=== PATIENT | female | born 1970 ===

== ENCOUNTER 2018-06-14 17:17 | Emergency (ER) | payer BC ==
[2018-06-14 17:32] VITALS: BMI 29.2
[2018-06-14 17:33] VITALS: RESP 18; TEMP 98.5
[2018-06-14] MEDS ORDERED: Sodium Chloride 0.9% 500 ML IV STA (17:57)
--- NOTE | 2018-06-14 18:35 | ED PDOC ---
Arrival/HPI - General Chief Complaint: Headache Time Seen by Provider: 06/14/18 17:18 Historian: Patient - History of Present Illness Narrative History of Present Illness (Text): 06/14/18 18:32 47-year-old female with no significant past medical history complaining of 4-day history of left flank pain that radiates to the left upper quadrant, patient states that the pain started 4 days ago, was intermittent but since last night has been constant pain associated with nausea. Patient also reports of a mild throbbing headache to the forehead which radiates to the back of her neck for the past 3 days. Otherwise the patient reports no fever, vomiting, diarrhea, urinary symptoms, having similar symptoms in the past, history of gastritis or peptic ulcer disease, history of kidney stones or history of kidney infection, head trauma, head injury, recent travel, recent illness. Of note, patient's only abdominal surgical history is a hysterectomy. PMD none Past Medical History - Infectious Disease Hx of Infectious Diseases: None - Psychiatric Hx Substance Use: No - Surgical History Hx Hysterectomy: Yes - Anesthesia Hx Anesthesia: Yes Hx Anesthesia Reactions: No Hx Malignant Hyperthermia: No Family/Social History Family/Social History: No Known Family HX Smoking Status: Never Smoked Hx Alcohol Use: No Hx Substance Use: No Allergies/Home Meds Allergies/Adverse Reactions: Allergies No Known Allergies Allergy (Verified 06/14/18 17:32) Review of Systems - Review of Systems Constitutional: absent: Fatigue, Fevers ENT: absent: Sore Throat, Rhinorrhea, Sinus Congestion Respiratory: absent: SOB, Cough Cardiovascular: absent: Chest Pain, Palpitations Gastrointestinal: Abdominal Pain, Nausea, Other (+ Left flank pain). absent: Diarrhea, Vomiting Genitourinary Female: absent: Dysuria, Frequency, Hematuria, Vaginal Bleeding, Vaginal Discharge Musculoskeletal: absent: Arthralgias, Back Pain, Neck Pain Skin: absent: Rash, Pruritis, Skin Lesions Neurological: Headache. absent: Dizziness Physical Exam Vital Signs Temp Pulse Resp BP Pulse Ox 06/14/18 18:30 59 L 18 114/69 98 06/14/18 17:32 98.5 F 60 18 116/75 99 Temperature: Afebrile Blood Pressure: Normal Pulse: Regular Respiratory Rate: Normal Appearance: Positive for: Well-Appearing, Non-Toxic, Comfortable Pain Distress: Mild Mental Status: Positive for: Alert and Oriented X 3 - Systems Exam Head: Present: Atraumatic, Normocephalic Pupils: Present: PERRL Extroacular Muscles: Present: EOMI Conjunctiva: Present: Normal Mouth: Present: Moist Mucous Membranes Pharnyx: Present: Normal. No: ERYTHEMA, EXUDATE Neck: Present: Normal Range of Motion. No: Meningeal Signs, Lymphadenopathy Respiratory/Chest: Present: Clear to Auscultation, Good Air Exchange. No: Respiratory Distress, Accessory Muscle Use Cardiovascular: Present: Regular Rate and Rhythm, Normal S1, S2. No: Murmurs Abdomen: No: Tenderness, Distention, Peritoneal Signs, Rebound, Guarding Back: Present: Normal Inspection, CVA Tenderness (+mild L CVA tenderness). No: Midline Tenderness, Paraspinal Tenderness Upper Extremity: Present: Normal Inspection. No: Cyanosis, Edema Lower Extremity: Present: Normal Inspection. No: Edema Neurological: Present: GCS=15, CN II-XII Intact, Speech Normal, Motor Func Grossly Intact, Normal Sensory Function Skin: Present: Warm, Dry, Normal Color. No: Rashes Psychiatric: Present: Alert, Oriented x 3, Normal Insight, Normal Concentration Medical Decision Making ED Course and Treatment: 06/14/18 18:35 Plan : - IV - Labs - UA, urine cx - Zofran / Toradol - Reassess / disposition - CT A/P without p.o. or IV contrast 06/14/18 20:09 Labs reviewed and wnl. CT abdomen and pelvis : No acute intra-abdominal or pelvic abnormality. Degenerative changes with degenerative disc disease at the L5-S1 level. On reevaluation, patient reports improvement of symptoms, denies any abdominal pain, N/V, CP or back pain. On exam, patient remains awake alert and oriented 3 in no acute distress. Abdomen soft and nontender, repeat neuro exam shows no focal findings. Results d/w the patient, diagnosis of possible dyspepsia d/w the patient. IV pepcid given. Advised to follow up with primary care physician or referral provided in 1-2 days without fail. Advised to take medication as prescribed. Return to the emergency room at any time for any new or worsening symptoms. Patient states she fully agrees with and understands discharge instructions. States that she agrees with the plan and disposition. Verbalized and repeated discharge instructions and plan. I have given the patient opportunity to ask any additional questions. - RAD Interpretation Radiology Orders: 06/14/18 17:57 ABD & PELVIS W/O PO OR IV CONT [CT] Stat - Medication Orders Current Medication Orders: Sodium Chloride (Sodium Chloride 0.9%) 500 mls @ 500 mls/hr IV .Q1H STA Stop: 06/14/18 18:56 Last Admin: 06/14/18 18:26 Dose: 500 mls/hr eMAR Start Stop Document 06/14/18 18:26 BB (Rec: 06/14/18 18:29 BB [facility] [id number]) Intravenous Solution Start Date 06/14/18 Start Time 18:29 Discontinued Medications Ketorolac Tromethamine (Toradol) 30 mg IVP STAT STA Stop: 06/14/18 17:58 Last Admin: 06/14/18 18:29 Dose: 30 mg MAR Pain Assessment Document 06/14/18 18:29 BB (Rec: 06/14/18 18:30 BB [facility] [place] [id number]) Pain Reassessment Is this a pain reassessment? No Sleep Is patient sleeping during reassessment? No Presence of Pain Presence of Pain Yes Pain Scale Used Protocol: PSCALES Pain Scale Used Numeric Location Pain Location Body Sales Support Technician Abdomen Description Intensity of Pain at present 8 Pain Behavior Moaning Grasping Site Rubbing Site Restlessness IVP Administration Document 06/14/18 18:29 BB (Rec: 06/14/18 18:30 BB [facility] [place] [id number]) Charges for Administration # of IVP Administrations 1 Ondansetron HCl (Zofran Inj) 4 mg IVP STAT STA Stop: 06/14/18 17:58 Last Admin: 06/14/18 18:29 Dose: 4 mg IVP Administration Document 06/14/18 18:29 BB (Rec: 06/14/18 18:29 BB [facility] [id number]) Charges for Administration # of IVP Administrations 1 - PA / [employer]IE[employer]ENANT / Resident Statement / has reviewed & agrees with the documentation as recorded. / has examined the patient and agrees with the treatment plan. - Scribe Statement The provider has reviewed the documentation as recorded by the Ju Rothman Provider Scribe Attestation: All medical record entries made by the Scribe were at my direction and personally dictated by me. I have reviewed the chart and agree that the record accurately reflects my personal performance of the history, physical exam, medical decision making, and the department course for this patient. I have also personally directed, reviewed, and agree with the discharge instructions and disposition. Disposition/Present on Arrival - Present on Arrival Any Indicators Present on Arrival: No History of DVT/PE: No History of Uncontrolled Diabetes: No Urinary Catheter: No History of Decub. Ulcer: No History Surgical Site Infection Following: None - Disposition Have Diagnosis and Disposition been Completed?: Yes Diagnosis: Flank pain, Dyspepsia Disposition: HOME/ ROUTINE Disposition Time: 20:15 Patient Plan: Discharge Patient Problems: Current Active Problems Problem Status Onset Flank pain Acute Dyspepsia Acute Condition: STABLE Discharge Instructions (ExitCare): Acute Abdomen (Belly Pain), Flank Pain, Dyspepsia Print Language: ARMENIAN Additional Instructions: Thank you for letting us take care of you today. You were treated for flank pain, abdominal pain, likely dyspepsia. The emergency medical care you received today was directed at your acute symptoms. If you were prescribed any medication, please fill it and take as directed. It may take several days for your symptoms to resolve. Return to the Emergency Department if your symptoms worsen, do not improve, or if you have any other problems. Please contact your doctor in 2 days for re-evaluation and follow up / or call one of the physicians/clinics you have been referred to that are listed on the Patient Visit Information form that is included in your discharge packet. Bring any paperwork you were given at discharge with you along with any medications you are taking to your follow up visit. Our treatment cannot replace ongoing medical care by a primary care provider (PCP) outside of the emergency department. Thank you for allowing the [email or web address] team to be part of your care today. Your CAT scan of the abdomen and pelvis shows : No acute intra-abdominal or pelvic abnormality. Degenerative changes with degenerative disc disease at the L5-S1 level. Follow up CT results with your doctor/referral physician provided. A Radiologist will review the ED reading if any change in treatment is needed we will contact you. If you had a urine culture: It will take several days for the results, if any change in treatment is needed we will contact you. Prescriptions: Esomeprazole Magnesium [Nexium] 20 mg PO DAILY #30 capsule. Referrals: Timmy Hutchins MD [Staff Provider] - Follow up with primary Jena Mcgee MD [Staff Provider] - Follow up with primary Forms: [facility] [facility] (Armenian), WORK NOTE
[2018-06-14 18:41] LABS: BASO # 0.02 K/mm3 (0.0-2.0); BASO % 0.3 % (0.0-3.0); EOS # 0.1 (0.0-0.7); EOS % 1.4 % (1.5-5.0); HEMOGLOBIN 13.3 g/dL (12.0-16.0); LYMPH # 2.5 (1.2-3.4); LYMPH % 38.9 % (22.0-35.0); MEAN CELL VOLUME 92.3 fl (80.0-105.0); MEAN CORPUSCULAR HEMOGLOBIN 31.1 pg (25.0-35.0); MEAN CORPUSCULAR HGB CONC 33.7 g/dl (31.0-37.0); MONO # 0.5 (0.1-0.6); MONO % 8.1 % (1.0-6.0); RBC 4.28 10^6/uL (3.5-6.1); WHITE BLOOD COUNT 6.4 10^3/uL (4.5-11.0)
[2018-06-14 18:41] LABS: URINE BILIRUBIN NEGATIVE (NEGATIVE); URINE BLOOD TRACE-INTACT (NEGATIVE); URINE GLUCOSE (UA) NEGATIVE (NEGATIVE); URINE LEUKOCYTE ESTERASE NEGATIVE Leu/uL (NEGATIVE); URINE PROTEIN NEGATIVE mg/dL (<30 mg/dL); URINE UROBILINOGEN 0.2 E.U./dL (<1 E.U./dL)
[2018-06-14 18:42] LABS: ALB/GLOB RATIO 1.2 (1.1-1.8); ALBUMIN 3.9 g/dL (3.0-4.8); ALT/SGPT 29 U/L (7-56); AST/SGOT 31 U/L (14-36); BLOOD UREA NITROGEN 12 mg/dL (7-21); CALCIUM 8.8 mg/dL (8.4-10.5); GFR NON-AFRICAN AMERICAN > 60; LIPASE 109 U/L (23-300)
[2018-06-14 19:10] LABS: URINE APPEARANCE CLEAR (CLEAR); URINE COLOR LIGHT YELLOW (YELLOW)
[2018-06-14 19:11] LABS: URINE BACTERIA OCC /hpf; URINE EPITHELIAL CELLS 0 - 2 /hpf (0-5); URINE RBC 0 - 2 /hpf (0-2); URINE WBC 0 - 2 /hpf (0-6)
[2018-06-14 19:43] VITALS: O2SAT 99
[2018-06-14 20:34] VITALS: BP 112/69
[2018-06-14 20:35] VITALS: PULSE 61
--- NOTE | 2018-06-15 07:51 | CT ---
Date of service: 06/14/2018 PROCEDURE: CT Abdomen and Pelvis without intravenous contrast HISTORY: L flank pain COMPARISON: None. TECHNIQUE: Unenhanced. Neither IV nor oral contrast administered Radiation dose: Total exam DLP = 727.66 mGy-cm. This CT exam was performed using one or more of the following dose reduction techniques: Automated exposure control, adjustment of the mA and/or kV according to patient size, and/or use of iterative reconstruction technique. FINDINGS: LOWER THORAX: Unremarkable. LIVER: Unremarkable. No gross lesion or ductal dilatation. GALLBLADDER AND BILE DUCTS: Unremarkable. PANCREAS: Unremarkable. No gross lesion or ductal dilatation. SPLEEN: Unremarkable. ADRENALS: Unremarkable. No mass. KIDNEYS AND URETERS: Unremarkable. No hydronephrosis. No solid mass. VASCULATURE: Unremarkable. No aortic aneurysm. No atherosclerotic calcification or mural plaque present. BOWEL: Constipation without fecal impaction or obstruction. APPENDIX: A normal appendix is visualized in it's entirety. PERITONEUM: Unremarkable. No free fluid. No free air. LYMPH NODES: Unremarkable. No enlarged lymph nodes. BLADDER: Unremarkable. REPRODUCTIVE: Unremarkable. BONES: No acute fracture. OTHER FINDINGS: None. IMPRESSION: No significant or acute findings to account for/ related to the clinical presentation. Additional benign and/or incidental findings described above. Concordant results (preliminary interpretation) provided by [facility]. Procedure Completed: 19:00. Preliminary Report: Interpreted and electronically signed: 19:32. Final Interpretation: 07:46. June 15, 2018.
== END 2018-06-14 20:34 | disposition home or self-care (01) ==
LOC: ED 17:17
DX: R10.13 Epigastric pain (principal)
CPT/HCPCS: 74176; 80053; 81001; 81025; 83690; 85025; 87086; 96374; 96375; 99285; J1885; J2405; J7040